=== PATIENT | female | born 1935 | race Two or more races ===

== ENCOUNTER 2017-08-02 08:24 | Emergency (ER) | payer OTHER, MEDICAID ==
[~2017-08-02] VITALS: Ht 157.5 cm; Wt 49.9 kg
--- NOTE | 2017-08-02 08:31 | Emergency Room Report ---
History of Present Illness General Chief Complaint: Multiple Trauma/Fall Source: EMS Present Illness HPI 82-year-old female brought in by EMS [facility] after a ground-level fall. Per EMS patient has history of Alzheimer's dementia, was walking across the hi without her walker, which she allegedly normally does, and patient had a fall that was questionably unwitnessed. Patient was placed in bed and then after last staff noted she had bruised to front of head. Patient is usually verbal however confused at baseline. Per review of medical records she is not on aspirin or other AC. History of present illness is limited due to dementia. Patient is DO NOT RESUSCITATE, comfort care only. Allergies: Coded Allergies: No Known Allergies (Unverified , 08/02/17) Patient History Past Medical History: other - See history of present illness Past Surgical History: none Pertinent Family History: none Social History: Denies: smoking, alcohol use, drug use Now: No Immunizations: UTD Reviewed Nursing Documentation: PMH: Agreed, PSxH: Agreed Review of Systems All Other Systems: limited - Dementia Physical Exam Vital Signs Date Time Temp Pulse Resp B/P (MAP) Pulse Ox O2 Delivery O2 Flow Rate FiO2 08/02/17 08:18 98.4 88 20 132/78 100 Room Air 98.4 Sp02 EP Interpretation: reviewed, normal General Appearance: normal inspection, well appearing, no apparent distress, alert, non-toxic, other - Elderly appearing, intermittently agitated Head: normocephalic, other - Ecchymoses to midline of forehead, no obvious laceration or bleeding Eyes: bilateral eye PERRL, bilateral eye EOMI ENT: normal ENT inspection, hearing grossly normal, normal pharynx, no angioedema, normal voice, TMs + canals normal, uvula midline, moist mucus membranes Neck: normal inspection, full range of motion, supple, thyroid normal, no meningismus, no bony tend, other - No posterior c-spine ttp Respiratory: normal inspection, lungs clear, normal breath sounds, no rhonchi, no respiratory distress, no retraction, no accessory muscle use, no wheezing, speaking full sentences Cardiovascular #1: regular rate, rhythm, no edema, no JVD, normal capillary refill Gastrointestinal: normal inspection, normal bowel sounds, non tender, soft, no mass, no peritonitis, non-distended, no guarding, no hernia, no pulsatile mass Genitourinary: no CVA tenderness Musculoskeletal: normal inspection, back normal, normal range of motion, no calf tenderness, pelvis stable, Demarcus's Sign negative, other - No shortened or rotated extremities Neurologic: normal inspection, alert, responsive, inspector agricultural commodities III-XII nml as tested, motor strength/tone normal, cerebellar normal, normal gait, speech normal Psychiatric: normal inspection, judgement/insight normal, mood/affect normal, no suicidal/homicidal ideation, no delusions Skin: normal inspection, normal color, no rash Lymphatic: normal inspection, no adenopathy Medical Decision Making Diagnostic Impression: Primary Impression: Fall Qualified Codes: W19.XXXA - Unspecified fall, initial encounter Additional Impression: Head contusion Qualified Codes: S00.93XA - Contusion of unspecified part of head, initial encounter ER Course Vital signs stable, afebrile Patient appears to be at baseline dementia CT head: no acute trauma X-ray of pelvis shows osteopenia but no acute fractures or hip dislocations - low suspicion for acute trauma to pelvis as it were. Labs: No leukocytosis, hemoglobin 9, no metabolic abnormalities given unremarkable labs, imaging and patient's known DO NOT RESUSCITATE status and comfort care only, we will respect patient's wishes and not do additional lab work, imaging or admission. Facilitated patient's return to [facility] ER course: Patient has remained stable during ED stay. Disposition: Patient is to be discharged to home. Patient is instructed to follow up with their primary care doctor within 5 days. Strict return precautions discussed with patient such as fever, chills, worsening/severe pain, nausea, vomiting, which may indicate severe illness. Patient verbalizes understanding and agrees with plan. Please note that this Emergency Department Report was dictated using [employer]th grade math teacher technology software, occasionally this can lead to erroneous entry secondary to interpretation by the dictation equipment Last Vital Signs Date Time Temp Pulse Resp B/P (MAP) Pulse Ox O2 Delivery O2 Flow Rate FiO2 08/02/17 08:18 98.4 88 20 132/78 100 Room Air 98.4 Status: improved Disposition: [facility] YANIRA GRANDE M.D. Aug 02, 2017 08:31
[2017-08-02] MEDS: Midazolam 2mg/2ml Inj IVP ONE (08:34)
[2017-08-02 08:38] VITALS: BP 132/78
[2017-08-02 08:41] LABS: EOSINOPHILS % (AUTO) 1.5 % (0.0-3.0); HEMATOCRIT 31.1 % (37.0-47.0); HEMOGLOBIN 9.1 G/DL (12.0-16.0); MEAN CORPUSCULAR VOLUME 74 FL (80-99); MONOCYTES % (AUTO) 8.3 % (1.0-10.0); NEUTROPHILS % (AUTO) 58.2 % (45.0-75.0); PLATELET COUNT 229 K/UL (150-450); RED BLOOD COUNT 4.21 M/UL (4.20-5.40); RED CELL DISTRIBUTION WIDTH 20.2 % (11.6-14.8); WHITE BLOOD COUNT 5.8 K/UL (4.8-10.8)
[2017-08-02 08:51] LABS: ANION GAP 2 mmol/L (5-15); BLOOD UREA NITROGEN 15 mg/dL (7-18); CALCIUM 8.9 MG/DL (8.5-10.1); CARBON DIOXIDE 28 MMOL/L (21-32); CHLORIDE 105 MMOL/L (98-107); POTASSIUM 4.3 MMOL/L (3.5-5.1); SODIUM 135 MMOL/L (136-145)
[2017-08-02] MEDS ORDERED: LEVSIN0.125 MG ORAL (08:52)
[2017-08-02] MEDS ORDERED: DOCUSATE SODIU100 MG ORAL (08:52)
[2017-08-02] MEDS ORDERED: SPIRONOLACTONE25 MG ORAL (08:52)
[2017-08-02] MEDS ORDERED: [UNRECOGNIZED DRUG - OTHER] PO (08:52)
[2017-08-02] MEDS ORDERED: HYDROCORTISONE-30 GM TOPIC (08:52)
[2017-08-02] MEDS ORDERED: BISACODYL5 MG RECTAL (08:52)
[2017-08-02 08:55] LABS: ALANINE AMINOTRANSFERASE 16 U/L (12-78); ALBUMIN 2.8 G/DL (3.4-5.0); ALBUMIN/GLOBULIN RATIO 0.7 (1.0-2.7); ALKALINE PHOSPHATASE 76 U/L (46-116); ASPARTATE AMINO TRANSFERASE 21 U/L (15-37); BILIRUBIN,TOTAL 0.4 MG/DL (0.2-1.0)
[2017-08-02] MEDS ORDERED: LORAZEPAM2 MG ORAL (09:10)
[2017-08-02] MEDS ORDERED: MILK OF MA400 MG/51 ORAL (09:10)
[2017-08-02] MEDS ORDERED: OMEPRAZOLE40 M1 ORAL (09:10)
[2017-08-02] MEDS ORDERED: METHADONE HCL5 MG PO (09:10)
[2017-08-02] MEDS ORDERED: KADIAN10 MG PO (09:10)
--- NOTE | 2017-08-02 09:25 | Diagnostic Imaging Report ---
Indication: Pelvic pain Technique: One view of the pelvis Comparison: Findings: No acute fractures. No dislocations. Bones are osteopenic. There are degenerative changes of the lower lumbar spine. Calcifications centrally in the pelvis may reflect old degenerative fibroids Impression: No definite acute bony trauma. Note, however, that in elderly os product patient's, nondisplaced hip and pelvic fractures can easily occult. Consider cross-sectional imaging for further evaluation if there is high clinical suspicion Other findings as noted
[2017-08-02 10:57] VITALS: BP 117/81
[2017-08-02 11:45] VITALS: BP 104/49
== END 2017-08-02 11:48 ==
LOC: EDBD 08:24 → EMR 08:54
DX: S00.83XA Contusion of other part of head, initial encounter (principal); W19.XXXA Unspecified fall, initial encounter; Y92.129 Unspecified place in nursing home as the place of occurrence of the external cause; Z66 Do not resuscitate; G30.9 Alzheimer's disease, unspecified; F02.80 Dementia in other diseases classified elsewhere, unspecified severity, without behavioral disturbance, psychotic disturbance, mood disturbance, and anxiety
CPT/HCPCS: 36415; 70450; 72170; 80053; 85025; 96374; 99284; J2250